=== PATIENT | male | born 1970 | race Caucasian/White ===

== ENCOUNTER 2020-01-26 09:15 | Emergency (ER) | payer SELFPAY ==
[2020-01-26 09:33] VITALS: BP 129/80; PULSE 145; RESP 16; TEMP 36.6; O2SAT 100
[2020-01-26 10:08] VITALS: PULSE 92; O2SAT 98
--- NOTE | 2020-01-26 10:19 | ED.GENADULT ---
HPI - General Adult General Chief complaint: Extremity Injury, Upper Stated complaint: infected right pinky finger Source: patient and RN notes reviewed Mode of arrival: ambulatory History of Present Illness HPI narrative: This is a 49-year-old Y male that presented today with complaints of swollen, painful right pinky finger. Patient is unsure of how this abscess occurred. Last he noticed his finger had developed a blister. A couple of days ago he attempted to burst the blister with a sterile safety pin. According to patient he sterilized a safety pin with applying to fire. Patient noted that his finger has not improved but worsen he did use alcohol and peroxide and Neosporin to the site while at home. Patient also complained of diarrhea, abdominal pain, shortness of breath nausea vomiting, and decrease in sleep. His heart rate on admission was greater than 150. Patient did admit to feeling anxious for the last couple of weeks which could be the cause of his abdominal pain diarrhea nausea vomiting and decrease in sleep. Patient has been advised to get tested for Covid. He was also given antibiotics for his infected right pinky finger given Zofran for his nausea and Imodium for his diarrhea and albuterol for shortness of breath he was also given hydroxyzine for anxiety. The patient denies CP, palpitation, extremity numbness, lightheadedness, dizziness, constipation, diarrhea, chills, or fever. Patient heart rate did go below 90 this visit he was instructed to continue taking his heart rate and follow-up with his primary care physician. Related Data Allergies Allergy/AdvReac Type Severity Reaction Status Date / Time No Known Allergies Allergy Verified 01/26/20 09:49 Review of Systems Review of Systems: All systems reviewed & are unremarkable except as noted in HPI and below (10 point system review) PMFSH Social History Social History Gender identity (if verbalized by the patient): Male Exam Narrative: Exam Narrative: GENERAL: This is a well-nourished, well-developed patient, in no apparent distress. HEAD: normocephalic, atraumatic. EYES: PERRL. Sclera clear/white. Vision is grossly intact. EARS: External ears normal, auditory canals clear and without drainage, TMs normal without perforation. Hearing grossly intact. NOSE: External nose normal with no obvious nasal discharge, nares without redness, no rhinorrhea. THROAT: Mucous membranes moist, posterior pharynx clear. NECK: Neck supple, non-tender without lymphadenopathy, masses or thyromegaly. CARDIOVASCULAR: Regular rate and rhythm without murmurs, gallops, or rubs. RESPIRATORY: Clear to auscultation. Breath sounds equal bilaterally. No wheezes, rales, or rhonchi. GASTROINTESTINAL: Abdomen soft, non-tender, nondistended. Bowel sounds are active. No hepato-splenomegaly, or palpable masses. No guarding. SKIN: Epinuclear with erythema and edematous will feel abscess to base of fingernail. NEURO: awake, alert, and oriented to person, place and time. There were no obvious focal neurologic abnormalities. Steady gait EXTREMITIES: Normal range of motion. No edema. No calf tenderness. Negative Homans sign bilaterally. BACK: Nontender without deformity or crepitance. No flank tenderness. Course Vital Signs Vital signs: Vital Signs Temperature 97.9 F 01/26/20 09:33 Pulse Rate 145 H 01/26/20 09:33 Respiratory Rate 16 01/26/20 09:33 Blood Pressure 129/80 01/26/20 09:33 Pulse Oximetry 100 01/26/20 09:33 Temperature 97.9 F 01/26/20 09:33 Pulse Rate 92 01/26/20 10:08 Respiratory Rate 16 01/26/20 09:33 Blood Pressure 129/80 01/26/20 09:33 Pulse Oximetry 98 01/26/20 10:08 Procedures Abscess I/D hand: Date of Incision: 01/26/20 Time of Incision: 10:25 Side (if applicable): right Sedation/analgesia: none Technique: incised with #15 blade Amount of fluid expressed (mL): 0.5 Irrigation: Yes
== END 2020-01-26 10:24 | disposition home or self-care (01) ==
PROVIDERS: Emergency Provider Nurse Practitioner
DX: L03.011 Cellulitis of right finger (principal)
CPT/HCPCS: 10060; 87070; 87075; 87076; 87205; 99203; G0463

== ENCOUNTER 2021-01-28 00:12 | Day surgery (SDC) | payer BC, SELFPAY ==
[2021-01-17 13:31] VITALS: BMI 24.7
[2021-01-28 06:58] VITALS: BP 108/72; PULSE 59; RESP 18; TEMP 36.5; O2SAT 98
--- NOTE | 2021-01-28 07:01 | SUR.PREOP ---
PT BROUGHT SOTALOL WITH HIM. DR MARINA NOTIFIED AND GAVE ORDERS THAT PT MAY TAKE AT THIS TIME WITH A SMALL SIP OF WATER. PT DID SO AT 0645.
[2021-01-28] MEDS: LACTATED RINGERS 1,000 ML 150 ML IV CONT (07:08)
--- NOTE | 2021-01-28 07:32 | WPDANESEPPF ---
Anes - Initial Pre Proc Eval Procedure: Operation Date: 01/28/21 08:00 Proposed Procedures p Screening Colonoscopy - Neal Feldman MD Date/Time: 01/28/21 07:32 Surgeon: Neal Feldman MD Pre Op Diagnosis: neoplasm screening Patient Data Age: 50 Gender: M Height: 1.75 m Weight: 77.5 kg Last Vital Signs Temp 36.5 C 01/28/21 06:58 Pulse 59 L 01/28/21 06:58 Resp 18 01/28/21 06:58 BP 108/72 01/28/21 06:58 Pulse Ox 98 01/28/21 06:58 Allergies Allergy/AdvReac Type Severity Reaction Status Date / Time No Known Allergies Allergy Verified 01/28/21 06:57 Home Medications Medication Instructions Recorded Confirmed Type apixaban 5 mg tablet 5 mg PO BID 07/10/20 01/17/21 History atorvastatin 20 mg tablet 20 mg PO DAILY 07/10/20 01/17/21 History sotalol 120 mg tablet 120 mg PO Q12H 07/10/20 01/17/21 History Patient hx anesthesia problems: none Family hx anesthesia problems: none Results Review: All pre-operative results and documents have been reviewed as part of the pre-operative evaluation. [facility] Past Medical History Medical History Atrial fibrillation CAD (coronary artery disease) History of cardioversion Sleep apnea Social History Social History Smoking status: Former smoker Tobacco type: cigarettes Living arrangements: with family Gender identity (if verbalized by the patient): Male Spiritual care concerns: No Anes - Eval Final PreProcedure Day of Procedure 01/28/21 07:32 Patient weight: normal Heart: regular rate and rhythm Lungs: clear to auscultation Airway: Mallampati scale class 1 Neurological: alert and oriented Last oral intake: >/= 8 hours ASA classification: III Emergent: no Anesthetic plan: proceed Anesthesia type and monitoring: general GIVS and standard monitoring Results Review: All pre-operative results and documents have been reviewed as part of the pre-operative evaluation. Informed Consent: The patient's anesthetic plan and its attendant risks and benefits were discussed with the patient/family/POA. Questions were solicited and answers provided to the satisfaction of the patient/family/POA.
--- NOTE | 2021-01-28 07:54 | PM.HPGS ---
History of Present Illness History of Present Illness Consent: Risks, benefits, and alternatives have been discussed and questions answered. Patient agrees to proceed with procedure. Chief complaint: neoplasm screening Narrative: Ko Nevarez is a 50 year old male here for first screening colonoscopy Review of Systems Constitutional: Constitutional: Denies headache(s) and Denies weakness Eyes: Eyes: Denies blurry vision ENT: Reports Normal hearing present, Denies headache(s) and Denies neck pain Cardiovascular: Cardiovascular: Denies chest pain and Denies dyspnea Respiratory: Respiratory: Denies dyspnea Gastrointestinal: Gastrointestinal: Reports no additional gastrointestinal complaints Genitourinary: Genitourinary: Denies dysuria Musculoskeletal: Musculoskeletal: Denies neck pain Integumentary/Breasts: Skin/Breast: Denies dry skin Neurologic: Reports Normal hearing present, Denies headache(s) and Denies weakness Psychiatric: Psychiatric: Denies anxiety Endocrine: Endocrine: Denies change in body appearance Hematologic/Lymphatic: Hematologic/Lymphatic: Denies easy bleeding Allergic/Immunologic: Allergic/Immunologic: Denies urticaria PMF Past Medical History Medical History (Updated 01/28/21 @ 07:55 by Neal Feldman MD) Atrial fibrillation CAD (coronary artery disease) Colon cancer screening History of cardioversion Sleep apnea Social History Social History Smoking status: Former smoker Tobacco type: cigarettes Living arrangements: with family Gender identity (if verbalized by the patient): Male Spiritual care concerns: No Meds Home Medications and Allergies Home Medications Medication Instructions Recorded Confirmed Type apixaban 5 mg tablet 5 mg PO BID 07/10/20 01/17/21 History atorvastatin 20 mg tablet 20 mg PO DAILY 07/10/20 01/17/21 History sotalol 120 mg tablet 120 mg PO Q12H 07/10/20 01/17/21 History Allergies Allergy/AdvReac Type Severity Reaction Status Date / Time No Known Allergies Allergy Verified 01/28/21 06:57 Vital Signs Vital Signs - 24 hr 01/28/21 06:58 Temperature 97.7 F Pulse Rate 59 L Respiratory Rate 18 Blood Pressure 108/72 Pulse Oximetry 98 Exam Const: General: comfortable and no acute distress HENMT: General nose exam: Normal nares present Eyes: General: appearance normal, both eyes and all related structures Neck: Neck: no JVD Resp: Auscultation: clear to auscultation bilaterally Cardio: Rate: regular rate Rhythm: regular rhythm GI: Inspection: non-distended GI Palp: Yes Soft to palpation Skin: General skin exam: normal color Neuro: General: gait normal Speech: normal speech Extrem: General: normal to inspection Psych: Mental Status: mental status grossly normal Assessment and Plan Assessment and plan (1) Colon cancer screening: Code(s): Z12.11 - Encounter for screening for malignant neoplasm of colon Status: Acute Assessment and Plan: colonoscopy
[2021-01-28 08:19] VITALS: BP 84/57; PULSE 51; RESP 10; O2SAT 99
[2021-01-28 08:29] VITALS: BP 90/59; PULSE 57; RESP 14; O2SAT 93
[2021-01-28 08:39] VITALS: BP 97/60; PULSE 57; RESP 16; O2SAT 95
== END 2021-01-28 08:48 | disposition home or self-care (01) ==
PROVIDERS: PCP Family Medicine; Visit Provider Internal Medicine Gastroenterology
PROC: 0DJD8ZZ Inspection of Lower Intestinal Tract, Via Natural or Artificial Opening Endoscopic (ICD-10-PCS; CPT 45378; principal; 2021-01-28 08:00)
DX: Z12.11 Encounter for screening for malignant neoplasm of colon (principal); D12.0 Benign neoplasm of cecum; D12.3 Benign neoplasm of transverse colon; I48.20 Chronic atrial fibrillation, unspecified; I25.10 Atherosclerotic heart disease of native coronary artery without angina pectoris; G47.30 Sleep apnea, unspecified; K57.30 Diverticulosis of large intestine without perforation or abscess without bleeding; K64.8 Other hemorrhoids; K64.4 Residual hemorrhoidal skin tags
CPT/HCPCS: 45385; 88305; J2704; J7120

== ENCOUNTER 2023-01-27 10:21 | Outpatient (CLI) | payer BC, SELFPAY ==
[2023-01-27 12:54] LABS: Basophils Absolute Auto 0.1 K/mm3 (0.0-0.1); Basophils Percent Auto 1.9 % (0.2-1.2); Eosinophils Absolute Auto 0.1 K/mm3 (0-0.3); Eosinophils Percent Auto 2.5 % (0-4.4); Hematocrit 47.9 % (42.0-52.0); Immature Granulocyte Absolute 0.02 K/mm3 (0.00-0.031); Immature Granulocyte Percent A 0.4 % (0-0.5); Lymphocytes Absolute Auto 1.71 K/mm3 (0.9-3.2); Lymphocytes Percent Auto 32.3 % (18.3-44.2); Mean Corpuscular HGB Conc 33.4 g/dl (32-36); Mean Corpuscular Hemoglobin 31.9 pg (26-34); Mean Corpuscular Volume 95.4 fl (80-100); Mean Platelet Volume 11.4 fl (7.4-10.4); Monocytes Absolute Auto 0.6 K/mm3 (0.1-0.6); Monocytes Percent Auto 10.6 % (2.6-8.5); Neutrophils Absolute Auto 2.8 K/mm3 (1.3-6.7); Neutrophils Percent Auto 52.3 % (45.5-73.1); Platelet Count Result 218 k/mm3 (150-375); Red Blood Count 5.02 M/mm3 (4.6-6.20); Red Cell Distribution Width 14.5 % (11.5-14.5); White Blood Count 5.3 K/mm3 (4.5-10.0)
[2023-01-27 13:23] LABS: Alanine Aminotransferase 35 U/L (6-50); Albumin Level 4.5 g/dL (3.5-5.1); Alkaline Phosphatase 76 U/L (38-126); Anion Gap 7 mmol/L (8-16); Aspartate Amino Transferase 41 U/L (17-59); Bilirubin,Total 0.8 mg/dL (0.2-1.3); Blood Urea Nitrogen 18 mg/dL (9-20); Calcium 9.1 mg/dL (8.4-10.2); Carbon Dioxide 29 mmol/L (22-30); Chloride 104 mmol/L (98-107); Cholesterol 162 mg/dL (0-200); Estimated Glomerular Filt Rate > 60; Glucose 87 mg/dL (65-110); HDL Direct 58 mg/dL; Potassium 4.3 mmol/L (3.4-5.0); Sodium 140 mmol/L (137-145); Triglycerides 50 mg/dL (<150)
[2023-01-27 13:34] LABS: LDL Cholesterol Direct 81 mg/dL
[2023-01-27 13:37] LABS: Vitamin D 25 Hydroxy 33.9 ng/mL
[2023-01-27 13:51] LABS: Thyroid Stimulating Hormone 0.812 uIU/mL (0.465-4.680)
[2023-01-27 13:53] LABS: Hemoglobin A1C 5.7 % (<5.7)
[2023-01-27 14:06] LABS: Hepatitis C Virus Antibody Negative (Negative)
== END 2023-01-27 10:22 | disposition home or self-care (01) ==
LOC: ANHGOSHLAB 10:22
PROVIDERS: PCP Family Medicine; Visit Provider Family Medicine
DX: I25.10 Atherosclerotic heart disease of native coronary artery without angina pectoris (principal); L30.9 Dermatitis, unspecified; E55.9 Vitamin D deficiency, unspecified; Z11.59 Encounter for screening for other viral diseases
CPT/HCPCS: 36415; 80053; 80061; 82306; 83036; 84443; 85025; 86803

== ENCOUNTER 2024-01-27 12:30 | Outpatient (CLI) | payer BC, SELFPAY ==
[2024-01-27 18:30] LABS: Basophils Absolute Auto 0.1 K/mm3 (0.0-0.1); Basophils Percent Auto 1.6 % (0.2-1.2); Eosinophils Absolute Auto 0.2 K/mm3 (0-0.3); Eosinophils Percent Auto 3.2 % (0-4.4); Hematocrit 48.6 % (42.0-52.0); Immature Granulocyte Absolute 0.02 K/mm3 (0.00-0.031); Immature Granulocyte Percent A 0.4 % (0-0.5); Lymphocytes Absolute Auto 1.75 K/mm3 (0.9-3.2); Lymphocytes Percent Auto 30.7 % (18.3-44.2); Mean Corpuscular HGB Conc 32.9 g/dl (32-36); Mean Corpuscular Hemoglobin 32.1 pg (26-34); Mean Corpuscular Volume 97.4 fl (80-100); Mean Platelet Volume 11.4 fl (7.4-10.4); Monocytes Absolute Auto 0.5 K/mm3 (0.1-0.6); Monocytes Percent Auto 8.8 % (2.6-8.5); Neutrophils Absolute Auto 3.2 K/mm3 (1.3-6.7); Neutrophils Percent Auto 55.3 % (45.5-73.1); Platelet Count Result 207 k/mm3 (150-375); Red Blood Count 4.99 M/mm3 (4.6-6.20); Red Cell Distribution Width 14.5 % (11.5-14.5); White Blood Count 5.7 K/mm3 (4.5-10.0)
[2024-01-27 19:19] LABS: Alanine Aminotransferase 22 U/L (6-50); Albumin Level 4.6 g/dL (3.5-5.1); Alkaline Phosphatase 71 U/L (38-126); Anion Gap 5 mmol/L (4-12); Aspartate Amino Transferase 41 U/L (17-59); Bilirubin,Total 0.7 mg/dL (0.2-1.3); Blood Urea Nitrogen 16 mg/dL (9-20); Calcium 9.1 mg/dL (8.4-10.2); Carbon Dioxide 31 mmol/L (22-30); Chloride 103 mmol/L (98-107); Cholesterol 164 mg/dL (0-200); Estimated Glomerular Filt Rate > 60; Glucose 81 mg/dL (65-110); HDL Direct 58 mg/dL; Potassium 4.3 mmol/L (3.4-5.0); Sodium 139 mmol/L (137-145); Triglycerides 65 mg/dL (<150)
[2024-01-27 19:30] LABS: LDL Cholesterol Direct 80 mg/dL
[2024-01-27 19:35] LABS: Hemoglobin A1C 5.7 % (<5.7)
[2024-01-27 19:43] LABS: Vitamin D 25 Hydroxy 39.4 ng/mL
== END 2024-01-27 12:31 | disposition home or self-care (01) ==
LOC: ANHGOSHLAB 12:31
PROVIDERS: PCP Family Medicine; Visit Provider Family Medicine
DX: Z00.00 Encounter for general adult medical examination without abnormal findings (principal); E55.9 Vitamin D deficiency, unspecified
CPT/HCPCS: 36415; 80053; 80061; 82306; 83036; 85025

== ENCOUNTER 2025-02-03 09:10 | Outpatient (CLI) | payer BC, SELFPAY ==
--- OUTSIDE RECORDS SUMMARY | 2025-02-03 09:24 | XMS_ITS | Clinical Summary ---
Author Organization [facility] Address [address] [place] [id number] Care Team Providers Care Chef Instructor Name Role Phone Unavailable Primary Care Provider Unavailabl e Social History Tobacco Use Types Packs/Day Years Used Date Smoking Tobacco: Never Assessed Sex and Gender Information Value Date Recorded Sex Assigned at Not on file Legal Sex Male 11:18 AM [employer] Gender Identity Not on file Sexual Orientation Not on file Plan of Treatment Health Maintenance Due Date Last Done Comments Hepatitis C Virus (HCV) Screening 1969 TdaP Immunization 1969 Hepatitis B Immunization (1 of 3 - 19+ 3-dose series) 02/11/1988 Cologuard 2014 Colonoscopy 2014 Colorectal Cancer Screening 2014 Immunochemical Fecal Occult Blood 2014 Pneumococcal Immunization (5 0+ years) (1 of 1 - PCV) 2019 Zoster Immunization (1 of 2) 2019 Influenza Immunization (#1) 2024 SARS-COV-2 Immunization ( - 2023- season) 2024 Respiratory Syncytial Virus (RSV) Immunization (Adult) (1 - 1-dose 75+ series) 02/11/2044 Human Papillomavirus (HPV) Immunization Aged Out No longer eligible b ased on patient's age to complete this topic Meningococcal Immunization (ACWY) Aged Out No longer eligible based on patient's age to complete this topic Rotavirus Immunization Aged Out No lo nger eligible based on patient's age to complete this topic
--- OUTSIDE RECORDS SUMMARY | 2025-02-03 09:24 | XMS_ITS | Clinical Summary ---
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 Euvolemic on exam. Assessment & Plan (10/24/2021 3:06 PM CDT): With recovered LV function NYHA class I symptoms Paroxysmal atrial fibrillation 08/31/2020 DOYLE (obstructive sleep apnea) 06/22/2020 Assessment & Plan (12/13/2024 3:49 PM CDT): Due to ongoing symptoms, the patient will continue CPAP at 8 cm water pressure. Denied need for supplies. DME [employer] Assessment & Plan (12/15/2023 3:40 PM CDT): Due to continued symptoms, the patient will continue CPAP at 8 cm water pressure. He denied need for supplies. D[facility] [employer] Assessment & Plan (12/11/2022 3:18 PM CDT): Patient continue to wear CPAP at 8 cm water pressure while sleeping. His DME is [employer]. Assessment & Plan (02/27/2022 3:42 PM GEOSPATIAL APPLICATIONS DEVELOPER): - cont CPAP Assessment & Plan (12/05/2021 2:40 PM CDT): Patient will continue CPAP therapy at 8 cm water pressure. I have ordered the patient an F 30 mask to see if this may help with compliance. DME company [employer]. Assessment & Plan (10/24/2021 4:12 PM CDT): Reviewed importance of continuing to treat sleep apnea to reduce atrial arrhythmia recurrence Assessment & Plan (12/24/2020 4:06 PM GEOSPATIAL APPLICATIONS DEVELOPER): Patient continue to wear CPAP at 8 cm water pressure while sleeping. His DME is [employer]. Assessment & Plan (09/17/2020 4:12 PM CDT): Patient continue to wear CPAP at 8 cm water pressure while sleeping. His DME is [employer]. Assessment & Plan (06/24/2020 10:17 AM CDT): Recent sleep study with mild sleep apnea -Scheduled for CPAP titration in July -Respiratory consulted for inpatient CPAP placed, patient refused during admission. Assessment & Plan (06/23/2020 11:28 AM CDT): Recent sleep study with mild sleep apnea -scheduled for CPAP titration in July -respiratory consult for inpatient CPAP placed, patient refused during admission. Chronic systolic heart failure 06/22/2020 Assessment & Plan (06/24/2020 10:17 AM CDT): NICM, LVEF 30% initially diagnosed Jan 2020 when pt presented to OSH with ADHF and A. Fib -Hemodynamically stable, appears euvolemic on exam -Continue Aldactone -GDMT limited by hypotension -Holding Metoprolol with initiation of Sotalol -Strict I&O, daily standing weights Assessment & Plan (06/23/2020 11:30 AM CDT): NICM, LVEF 30% initially diagnosed Jan 2020 when pt presented to OSH with ADHF and Afib -euvolemic on exam -cont aldactone -GDMT limited by hypotension -will hold metoprolol initially while starting sotalol -accurate I&O, monitor on telemetry, daily weights Persistent atrial fibrillation 06/04/2020 Assessment & Plan (02/28/2022 1:10 PM GEOSPATIAL APPLICATIONS DEVELOPER): S/p ablation 02/27. - Resumed eliquis, cont sotalol - PPI daily x1 month - cleared by cardiology for discharge today Assessment & Plan (10/24/2021 4:10 PM CDT): He remains on sotalol 80 mg BID, QT interval stable, check BMP today He previously didn't tolerate higher doses of sotalol due to bradycardia 2 AF recurrences on sotalol 80 mg BID - episode in Mar 2021 requiring DCCV and more recently AF episode in May 2021, converted on his own <24 hours We discussed options of continuation of sotalol, trial of alternative AAD or PVI ablation. He would like to pursue ablation in February 2022. Risks/beneftis of ablation discussed with the patient and his . Will discuss with Dr Person and have his scheduling team contact the patient. Continue Eliquis anticoagulation Assessment & Plan (06/24/2020 10:34 AM CDT): S/p DCCV April with early Afib recurrence now admitted for Sotalol drug load -Currently A. Fib, HR 70s -Sotalol initiated on 06/22, uptitrated to 120 mg BID yesterday -QTc stable, continue Sotalol 120 mg BID (dose #4 this morning) -EKGs 2 hours after each dose -Continue Eliquis, pt reports no missed doses -Continuous strict telemetry -NPO tonight at [place] for possible cardioversion tomorrow if not chemically converted before then Assessment & Plan (06/23/2020 11:28 AM CDT): S/p DCCV April with early Afib recurrence now admitted for drug load -sotalol 80mg started last night--today will be dose #3 and #4. -EKGs 2 hours after each dose -continuous strict telemetry -continue eliquis, pt reports no missed doses -pt states he is hypotensive at baseline, will hold metoprolol for now. It was recently increased from 50mg to 100mg. Will discuss with EP. Nodule of upper lobe of left lung 05/08/2020 Tobacco dependence syndrome 05/08/2020 Assessment & Plan (12/13/2024 3:48 PM CDT): The patient has been tobacco free for 5 years. He has a history of 1 and half pack cigarettes per day for over 30 years. I have ordered a lung cancer screening CT for January of 2025 Assessment & Plan (12/15/2023 3:40 PM CDT): Due to the patient's smoking history, I have ordered a lung cancer screening CT for January of 2024. 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 The patient continues to be tobacco free since January of 2020. He states that he smoked 1 and half packs of cigarettes for over 30 years. He continues with his Nicorette gum Assessment & Plan (12/11/2022 3:18 PM CDT): The patient did stop smoking two years ago. The patient did smoke a pack to two packs cigarettes a day for 20-25 years. Resolved Problems Problem Noted Date Diagnosed Date Resolved Date Snoring 05/08/2020 12/05/2021 Assessment & Plan (05/08/2020 4:14 PM CDT): The patient presented with new onset atrial fibrillation and has had some snoring with witnessed apneas by his . I have recommended proceeding with a nocturnal polysomnogram with a split night protocol if necessary and no MSLT. His ejection fraction January 2020 was 30-35%. Encounters Date Type Department Care Team Description 12/13/2024 3:15 PM CDT Office Visit [facility] [address] [place] [address] Nichelle Adrian NP DOYLE (obstructive sleep apnea) (Primary Dx); Tobacco dependence syndrome; Personal history of tobacco use from Last 3 Months Immunizations Immunization Administration Dates Next Due Pfizer SARS-CoV-2 Monovalent Vaccination (12+ Yrs) PURPLE 05/06/2020 Tdap 07/18/2022 Surgical History Surgery Date Site/Laterality Comments CARDIOVERSION multiples Medical History Medical History Date Comments A-fib (HCC) CHF (congestive heart failure) (HCC) Sleep apnea A-fib (HCC) Family History Medical History Relation Name Comments Cancer Brother Lung disease Father Heart disease Mother Heart failure Mother Hypertension Mother Anesthesia problems Neg Hx Malig Hypertension Neg Hx Malig Hyperthermia Neg Hx Pseudochol deficiency Neg Hx Relation Name Status Comments Brother Father Mother Alive Social History Tobacco Use Types Packs/Day Years Used Date Smoking Tobacco: Former Cigarettes 2 33.9 1 987 - 01/25/2020 Smokeless Tobacco: Never Tobacco Cessation:Counseling Given: Not Answered Comments:chew nicotine gum Alcohol Use Standard Drinks/Week Comments Never 0 (1 standard drink = 0.6 oz pur e alcohol) AUDIT-C Answer Date Recorded Q1: How often do you have a drink containing alcohol? Never 02/27/2022 Q2: How many drinks containi ng alcohol do you have on a typical day when you are drinking? Patient does not drink Q3: How often do you have si x or more drinks on one occasion? Never 02/27/2022 Personal Safety Answer Date Recorded Have you ever been in or are you currently in a harmful physical or emotional relationship or is someone making you feel afraid or unsafe? Denies 08/22/2023 Sex and Gender Information Value Date Recorded Sex Assigned at Not on file Legal Sex Male 8:58 PM GEOSPATIAL APPLICATIONS DEVELOPER Gender Identity Male 07/10/2021 7:20 PM CDT Sexual Orientation Straight 07/10/2021 7: 20 PM CDT Last Filed Vital Signs Vital Sign Reading Time Taken Comments Blood Pressure 116/72 12/13/2024 3:00 PM CDT Pulse 89 12/13/2024 3:00 PM CDT Temperature 35.8 C (96.5 F) 12/13/2024 3:00 PM CDT Respiratory Rate 17 12/13/2024 3:00 PM CDT Oxygen Saturation 99% 12/13/2024 3:00 PM CDT Inhaled Oxygen Concentration - - Weight 83.9 kg (185 lb) 12/13/2024 3:00 PM CDT Height 177.8 cm (5' 10) 12/13/2024 3:00 PM CDT Body Mass Index 26.54 12/13/2024 3:00 PM CDT Plan of Treatment Health Maintenance Due Date Last Done Comments Colon Cancer Screening-Colonoscopy 1969 Depression Screening 1969 Prostate Cancer Screening-PSA 1969 Regular Well Visit/Exam 18-64 1987 Pneumococcal vaccine <65 (1 of 2 - PCV) 02/11/1988 Zoster Vaccine (1 of 2) 2019 Covid-19 Vaccine (3 - season) 10/17/202412/2020, 05/06/2020 Influenza Vaccine (#1) 2024 Lung Cancer Screening 02/15/2025 02/15/2024, 023 DTaP/Tdap/Td Vaccine (3 - Td or Tdap) 07/18/203203/2022, 10/03/2020 Hepatitis B Screening Completed 01/31/2020 Hepatitis C Screening Completed 01/31/2020 Procedures Procedure Name Priority Date/Time Associated Diagnosis Comments CT LUNG CANCER SCREENING Schedule Routine, Read Routine (OP Routine) 02/15/2024 10:17 AM GEOSPATIAL APPLICATIONS DEVELOPER Personal history of tobacco use HEPATITIS PANEL, ACUTE Routine 01/31/2020 4:11 PM GEOSPATIAL APPLICATIONS DEVELOPER from Last 3 Months or Most Recently Relevant to Health Maintenance Results * CT Lung Cancer Screening (02/15/2024 10:17 AM GEOSPATIAL APPLICATIONS DEVELOPER) Anatomical Region Laterality Modality Chest N/A Computed Tomogra phy 02/18/2024 11:4 4 AM GEOSPATIAL APPLICATIONS DEVELOPER Narrative 02/18/2024 11:55 AM GEOSPATIAL APPLICATIONS DEVELOPER EXAM DESCRIPTION: CT LUNG CANCER SCREENING REASON FOR STUDY: Screening CT of the chest in a former smoker with a 54 pack year smoking history. Additional history: Quit 5 years ago. TECHNIQUE: Low dose CT scan of the chest was performed without intravenous contrast using helical scanning technique. The exam extends from the lung apices through the lung bases. Automatic exposure control was used as a dose optimization technique. NOTE: This study was performed for the specific purposes of lung cancer screening and is not an alternative to diagnostic chest CT. The sensitivity for detection of solid visceral lesions is diminished without the use of intravenous contrast. RADIATION DOSE: CT dose index volume (CTDIvol) = 2.89 mGy COMPARISON: CT chest 01/13/2023 FINDINGS: SMOKING RELATED LUNG DISEASE: Mild pulmonary emphysema is grossly similar. Mild scarring in the lung apices is unchanged. LUNG NODULES: Noncalcified 2 mm nodule in the lateral left upper lobe (image 84) is unchanged. Subpleural noncalcified 3 mm nodule in the lingula (image 232) is unchanged. Noncalcified 3 mm nodule in the lateral right apex (image 62) is unchanged. PLEURAE: No pneumothorax or pleural effusion. MEDIASTINUM/SUZANNA: No mediastinal or hilar lymphadenopathy within the limitations of a noncontrast exam. HEART: Heart size is within normal limits. Trace pericardial effusion. Moderate coronary artery calcification. CORONARY ARTERY CALCIFICATION: Moderate VASCULATURE: No thoracic aortic aneurysm. AXILLAE: No lymphadenopathy. CHEST WALL: No masses. No subcutaneous air. HARDWARE/LINES/TUBES: None. UPPER ABDOMEN: Subcentimeter low-attenuation lesion in the posterior right hepatic lobe is unchanged from the prior study and likely a cyst or hemangioma. No specific follow-up is required. Nonobstructing 9 mm calculus in the interpolar left kidney is unchanged. MUSCULOSKELETAL: Mild thoracic spondylosis. IMPRESSION: Noncalcified pulmonary nodules measuring up to 3 mm are unchanged. Mild pulmonary emphysema is grossly similar. Lung-RADS category 2: Benign appearance or behavior. Recommendation: Low dose Screening CT of chest in 12 months. THIS IS AN ELECTRONICALLY VERIFIED FINAL REPORT 02/18/2024 11:55 AM - Electronically signed by Serafin Zafar M.D. LB: MARGOTH Report ID: [id number] Reading Location: [id number] Procedure Note Serafin Zafar MD - 02/18/2024 EXAM DESCRIPTION: CT LUNG CANCER SCREENING REASON FOR STUDY: Screening CT of the chest in a former smoker with a54 pack year smoking history. Additional history: Quit 5 years ago. TECHNIQUE: Low dose CT scan of the chest was performed without intravenous contrast using helical scanning technique. The exam extends from the lung apices through the lung bases. Automatic exposure control was used as adose optimization technique. NOTE: This study was performed for the specific purposes of lung cancer screening and is not an alternative to diagnostic chest CT. Thesensitivity for detection of solid visceral lesions is diminished without the use of intravenous contrast. RADIATION DOSE: CT dose index volume (CTDIvol) = 2.89 mGy COMPARISON: CT chest 01/13/2023 FINDINGS: SMOKING RELATED LUNG DISEASE: Mild pulmonary emphysema isgrossly similar. Mild scarring in the lung apices is unchanged. LUNG NODULES: Noncalcified 2 mm nodule in the lateral left upper lobe(image 84) is unchanged. Subpleural noncalcified 3 mm nodule in the lingula(image 232) is unchanged. Noncalcified 3 mm nodule in the lateral right apex(image 62) is unchanged. PLEURAE: No pneumothorax or pleural effusion. MEDIASTINUM/SUZANNA: No mediastinal or hilar lymphadenopathy within the limitations of a noncontrast exam. HEART: Heart size is within normal limits. Trace pericardial effusion. Moderate coronary artery calcification. CORONARY ARTERY CALCIFICATION: Moderate VASCULATURE: No thoracic aortic aneurysm. AXILLAE: No lymphadenopathy. CHEST WALL: No masses. No subcutaneous air. HARDWARE/LINES/TUBES: None. UPPER ABDOMEN: Subcentimeter low-attenuation lesion in the posteriorright hepatic lobe is unchanged from the prior study and likely a cyst or hemangioma. No specific follow-up is required. Nonobstructing 9 mmcalculus in the interpolar left kidney is unchanged. MUSCULOSKELETAL: Mild thoracic spondylosis. IMPRESSION: Noncalcified pulmonary nodules measuring up to 3 mm are unchanged. Mild pulmonary emphysema is grossly similar. Lung-RADS category 2: Benign appearance or behavior. Recommendation: Low dose Screening CT of chest in 12 months. THIS IS AN ELECTRONICALLY VERIFIED FINAL REPORT 02/18/2024 11:55 AM - Electronically signed by Serafin Zafar M.D. LB: MARGOTH Report ID: [id number] Reading Location: [id number] us Nichelle ACa Adrian STORE CONSULTANT IMG CT PROCEDURES Final Res ult * Hepatitis panel, acute (01/31/2020 4:11 PM GEOSPATIAL APPLICATIONS DEVELOPER) HepBsAg NONREACT NONREACTIVE [facility] Comment: Siem[employer] CentaurXP using ROSSANA (chemiluminescent immunoassay) technology. NONREACTIVE: IgM antibodies to Hepatitis B Surface antigen not detected. REACTIVE: IgM antibodies to Hepatitis B Surface antigen detected. Reactive results will be confirmed by neutralization testing. HBsAb qn <3.10 mIU/mL [facility] Comment: Siemens CentaurXP using ROSSANA (chemiluminescent immunoassay) technology. 9.99 IU/L or less.....NONREACTIVE: IgM antibodies to Hepatitis B Surface antibody are not detected. 10.00 IU/L or greater..REACTIVE: IgM antibodies to Hepatitis B Surface antibody are detected. Hep B core IgM NONREACT NONREACTIVE [facility] Comment: Siemens CentaurXP using ROSSANA (chemiluminescent immunoassay) technology. NONREACTIVE: IgM antibodies to Hepatitis B Core antigen not detected. EQUIVOCAL: IgM antibodies to Hepatitis B Core antigen may or may not be present. Obtain a new specimen and retest. REACTIVE: IgM antibodies to Hepatitis B Core antigen detected. Hep A IgM NONREACT NONREACTIVE [facility] Comment: Siemens CentaurXP using ROSSANA (chemiluminescent immunoassay) technology. NONREACTIVE: IgM antibodies to Hepatitis A not detected. This does not exclude possibility of exposure to Hepatitis A or early acute infection. EQUIVOCAL:IgM antibodies to Hepatitis A may or may not be present. Suggest recollection and retest. REACTIVE: Antibodies to Hepatitis A detected. Hep C Ab NONREACT NONREACTIVE [facility] Comment: [employer]ens CentaurXP using ROSSANA (chemiluminescent immunoassay) technology. NONREACTIVE: Antibodies to Hepatitis C not detected. This does not exclude early acute Hepatitis C infection, possibility of exposure to Hepatitis C, antibodies below detection limit, or to lack of antibody reactivity to the antigen used in this assay. EQUIVOCAL: Antibodies to Hepatitis C may or may not be present. Sample to be confirmed by real-time PCR method. REACTIVE: Antibodies to Hepatitis C detected.Sample to be confirmed by real-time PCR method. 01/31/2020 4:11 PM GEOSPATIAL APPLICATIONS DEVELOPER 01/31/2020 4:24 PM GEOSPATIAL APPLICATIONS DEVELOPER Narrative Resulting Agency Comment IN Selam Yao NP LAB MICROBIOLOGY - GENERAL ORDERABLES Final Result [facility] [address] [place] [address], [facility] [phone] from Last 3 Months or Most Recently Relevant to Health Maintenance [place] For more information, please contact: [phone] * Full Code (Latest Code Status on File) Date Activated Date Inactivated Comments 02/27/2022 3:21 PM 02/28/2022 2:23 PM * Full Code Date Activated Date Inactivated Comments 06/22/2020 3:23 PM 06/25/2020 9:20 PM Care Teams Conductor Pullman Relationship Specialty Start Date End Date Erin Grant MD PCP - General 01/31/20
[2025-02-03 12:54] LABS: Hematocrit 47.4 % (42.0-52.0); Hemoglobin 15.5 g/dL (14.0-18.0); Immature Granulocyte Percent A 0.3 % (0-0.5); Lymphocytes Absolute Auto 1.89 K/mm3 (0.9-3.2); Mean Corpuscular HGB Conc 32.7 g/dl (32-36); Mean Corpuscular Hemoglobin 31.5 pg (26-34); Mean Corpuscular Volume 96.3 fl (80-100); Nucleated Red Blood Cells Absolute Auto 0.000 K/mm3 (0.0-0.012); Nucleated Red Blood Cells Perc 0.0 % (0.0-0.2); Platelet Count Result 232 k/mm3 (150-375); Red Blood Count 4.92 M/mm3 (4.6-6.20); White Blood Count 5.7 K/mm3 (4.5-10.0)
[2025-02-03 13:13] LABS: Alanine Aminotransferase 23 U/L (6-50); Albumin Level 4.2 g/dL (3.5-5.1); Alkaline Phosphatase 70 U/L (38-126); Anion Gap 5 mmol/L (4-12); Aspartate Amino Transferase 54 U/L (17-59); Bilirubin,Total 0.6 mg/dL (0.2-1.3); Blood Urea Nitrogen 16 mg/dL (9-20); Calcium 8.9 mg/dL (8.4-10.2); Carbon Dioxide 29 mmol/L (22-30); Chloride 104 mmol/L (98-107); Cholesterol 154 mg/dL (0-200); Estimated Glomerular Filt Rate > 60; Glucose 73 mg/dL (65-110); HDL Direct 52 mg/dL; Potassium 4.2 mmol/L (3.4-5.0); Sodium 138 mmol/L (137-145); Total Protein 7.3 g/dL (6.3-8.2); Triglycerides 87 mg/dL (<150)
[2025-02-03 13:53] LABS: Prostate Specific Antigen 1.2 ng/mL (< OR = 4.0)
== END 2025-02-03 09:11 | disposition home or self-care (01) ==
LOC: ANHGOSHLAB 09:11
PROVIDERS: PCP Family Medicine; Visit Provider Family Medicine
DX: I25.10 Atherosclerotic heart disease of native coronary artery without angina pectoris (principal); Z12.5 Encounter for screening for malignant neoplasm of prostate; Z79.01 Long term (current) use of anticoagulants; E55.9 Vitamin D deficiency, unspecified
CPT/HCPCS: 36415; 80053; 80061; 82306; 84153; 85025; G0103